=== PATIENT | female | born 1980 | race Caucasian/White ===

== ENCOUNTER 2024-03-16 01:32 | Inpatient (IN) | payer OTHER, SELFPAY ==
[2024-03-16 03:56] LABS: #Basophils Less than 0.03 10x3/uL (0.0-0.2); #Eosinophils Less than 0.03 10x3/uL (0.0-0.7); %Basophils 0.1 % (0.0-1.0); %Lymphocytes 2.4 % (21.0-51.0); %Monocytes 2.5 % (0.0-10.0); %Neutrophils 94.4 % (42.0-75.0); Hematocrit 36.5 % (36.0-47.0); Hemoglobin 11.8 g/dL (12.0-16.0); Mean Corpuscular HGB CONC 32.3 g/dL (32.0-36.0); Mean Corpuscular Hemoglobin 31.6 pg (27.0-31.0); Mean Corpuscular Volume 97.6 fL (78.0-98.0); Platelet Count 212 10x3/uL (130-400); RBC Distribution Width 11.9 % (11.5-14.5); Red Blood Cell (RBC) Count 3.74 mill/uL (4.20-5.40)
[2024-03-16 04:31] LABS: Acetaminophen Less than 10 mcg/mL (Less than 10); Alcohol Less than 10.0 mg/dL (Less than 10); Magnesium 1.6 mg/dL (1.6-2.6); Salicylate Less than 8.0 mg/dL (Less than 8.0)
[2024-03-16 04:33] LABS: ALT (SGPT) 42 U/L (8-55); AST (SGOT) 50 U/L (5-34); Albumin 3.5 g/dL (3.5-5.0); Alkaline Phosphatase 66 U/L (40-110); Anion Gap 13 mmol/L (10-20); BUN (Urea Nitrogen) 15 mg/dL (7.0-18.7); Bilirubin, Total 0.9 mg/dL (0.2-1.2); Calc. Creatinine Clearance 0 mL/min (70-130); Calcium 8.7 mg/dL (7.8-10.44); Carbon Dioxide 18 mmol/L (22-29); Chloride 109 mmol/L (98-107); Estimated GFR 111; Globulin 2.9 g/dL (2.4-3.5); Glucose 114 mg/dL (70-105); Potassium 3.6 mmol/L (3.5-5.1); Protein, Total 6.4 g/dL (6.0-8.3); Sodium 136 mmol/L (136-145)
[2024-03-16 04:34] LABS: Troponin I 0.034 ng/mL (< 0.028)
[2024-03-16 04:59] LABS: BHCG - Serum Negative (NEGATIVE); Pregs Control Background? CLEAR/WHITE (CLR/WHITE); Pregs Control Bar Appear? YES (CONTROL BAR)
[2024-03-16 05:09] LABS: Bilirubin Negative (Negative); Blood, Urine Negative (Negative); CAUTI Indications for Culture Pelvic or flank pain; Clarity Turbid (Clear); Glucose, Urine (Dipstick) Normal (Negative); Ketone, Urine Trace mg/dL (Negative); Leukocyte 500 Leu/uL (Negative); Nitrite Negative (Negative); Protein, Urine (Dipstick) 50 mg/dL (Neg-Trace); RBC/HPF 0-3 HPF (0-3); Specific Gravity, Urine 1.021 (1.002-1.036); Squamous Epithelial 0-3 HPF (0-3); WBC/HPF 21-50 HPF (0-3); pH, Urine 8.5 (5.0-9.0)
[2024-03-16 05:15] LABS: Bacteria/HPF Rare-Few HPF (None Seen); Urine Culture Reflex Yes Yes
[2024-03-16 05:25] LABS: Pregnancy Test - Urine (BHCG) Negative (Negative); Pregu Control Background? CLEAR/WHITE (CLR/WHITE); Pregu Control Bar Appear? YES (CONTROL BAR); Specific Gravity 1.021 (1.002-1.036)
[2024-03-16 05:34] LABS: Amphetamine Detected (NotDetected); Barbiturates Screen Not Detected (NotDetected); Benzodiazepine Screen Not Detected (NotDetected); Cocaine Metabolite Screen Not Detected (NotDetected); Methadone Not Detected (NotDetected); Methamphetamine Detected (NotDetected); Opiate Screen Detected (NotDetected); Oxycodone Screen Not Detected (NotDetected); Phencyclidine (PCP) Not Detected (NotDetected); THC/Cannabinoid Screen Not Detected (NotDetected); Tricyclic Screen Not Detected (NotDetected)
[2024-03-16] MEDS ORDERED: Aspirin Chewable 81 MG TAB ONE (08:35)
[2024-03-16] MEDS ORDERED: Acetaminophen 325 MG TAB PO PRN (08:51)
[2024-03-16] MEDS ORDERED: Iopamidol 370 76% 100 ML VIAL ONE (09:08)
[2024-03-16] MEDS ORDERED: Enoxaparin 40 MG (0.4 mL) SYRINGE ONE (10:30)
[2024-03-16] MEDS ORDERED: Pantoprazole DR 40 MG TAB ONE (10:30)
[2024-03-16] MEDS: Enoxaparin 40 MG (0.4 mL) SYRINGE SC SCH (10:35)
[2024-03-16] MEDS: Pantoprazole DR 40 MG TAB PO SCH (10:35)
[2024-03-16] MEDS: Sodium Chloride 0.9% 1,000 ML IV SCH (10:36)
[2024-03-16 11:13] LABS: Troponin I 1.033 ng/mL (< 0.028)
[2024-03-16 11:29] VITALS: BMI 20.9
[2024-03-16] MEDS ORDERED: Nitroglycerin 0.4 MG TAB (25 Tab Bottle) SL PRN (12:59)
[2024-03-16 13:02] LABS: #Basophils 0.04 10x3/uL (0.0-0.2); #Eosinophils Less than 0.03 10x3/uL (0.0-0.7); %Basophils 0.2 % (0.0-1.0); %Eosinophils 0.1 % (0.0-10.0); %Lymphocytes 6.4 % (21.0-51.0); %Monocytes 3.2 % (0.0-10.0); %Neutrophils 89.6 % (42.0-75.0); Hematocrit 34.1 % (36.0-47.0); Hemoglobin 11.3 g/dL (12.0-16.0); Mean Corpuscular HGB CONC 33.1 g/dL (32.0-36.0); Mean Corpuscular Hemoglobin 31.8 pg (27.0-31.0); Mean Corpuscular Volume 96.1 fL (78.0-98.0); Mean Platelet Volume 9.2 fL (7.4-10.4); Platelet Count 218 10x3/uL (130-400); Red Blood Cell (RBC) Count 3.55 mill/uL (4.20-5.40)
[2024-03-16 13:42] LABS: Anion Gap 10 mmol/L (10-20); BUN (Urea Nitrogen) 11 mg/dL (7.0-18.7); Calc. Creatinine Clearance 100 mL/min (70-130); Calcium 8.8 mg/dL (7.8-10.44); Carbon Dioxide 22 mmol/L (22-29); Chloride 107 mmol/L (98-107); Estimated GFR 111; Glucose 96 mg/dL (70-105); Potassium 3.7 mmol/L (3.5-5.1); Sodium 135 mmol/L (136-145)
[2024-03-16 14:02] LABS: Critical Call Chem Troponin I RESULT DECREASING; Troponin I 0.983 ng/mL (< 0.028)
[2024-03-16] MEDS: Enoxaparin 30 MG (0.3 mL) SYRINGE SC SCH (16:42)
[2024-03-16] MEDS: traMADol HCl 50 MG TAB PO SCH (21:27)
[2024-03-16] MEDS: HYDROcodone/Acetaminophen 5/325 mg Tablet PO SCH (23:52)
[2024-03-16] MEDS: Enoxaparin 60 MG (0.6 mL) SYRINGE SC SCH (23:52)
[2024-03-17] MEDS: Piperacillin/Tazobactam 3.375 GM in Sodium Chloride 0.9% 100 ML IVPB SCH ×3 (00:20→05:01)
[2024-03-17] MEDS ORDERED: Lactated Ringer's 1,000 ML IV SCH (00:30)
[2024-03-17] MEDS ORDERED: MD-Gastroview 120 ML BOT ONE (09:09)
[2024-03-17 11:19] LABS: #Basophils Less than 0.03 10x3/uL (0.0-0.2); %Basophils 0.2 % (0.0-1.0); %Eosinophils 0.8 % (0.0-10.0); %Lymphocytes 7.2 % (21.0-51.0); %Neutrophils 85.4 % (42.0-75.0); Hematocrit 38.3 % (36.0-47.0); Hemoglobin 12.6 g/dL (12.0-16.0); Mean Corpuscular HGB CONC 32.9 g/dL (32.0-36.0); Mean Corpuscular Hemoglobin 31.6 pg (27.0-31.0); Mean Platelet Volume 9.2 fL (7.4-10.4); Platelet Count 217 10x3/uL (130-400); RBC Distribution Width 12.1 % (11.5-14.5); Red Blood Cell (RBC) Count 3.99 mill/uL (4.20-5.40)
[2024-03-17 11:31] LABS: Anion Gap 13 mmol/L (10-20); BUN (Urea Nitrogen) 10 mg/dL (7.0-18.7); Calc. Creatinine Clearance 114 mL/min (70-130); Calcium 8.9 mg/dL (7.8-10.44); Carbon Dioxide 23 mmol/L (22-29); Chloride 105 mmol/L (98-107); Estimated GFR 112; Glucose 103 mg/dL (70-105); Potassium 3.8 mmol/L (3.5-5.1); Sodium 137 mmol/L (136-145)
[2024-03-17] MEDS: Morphine 2 MG/ML VIAL SLOW IVP PRN (20:36)
[2024-03-18 10:51] LABS: #Basophils Less than 0.03 10x3/uL (0.0-0.2); %Basophils 0.1 % (0.0-1.0); %Eosinophils 1.1 % (0.0-10.0); %Lymphocytes 7.5 % (21.0-51.0); %Neutrophils 83.8 % (42.0-75.0); Hematocrit 40.2 % (36.0-47.0); Hemoglobin 13.8 g/dL (12.0-16.0); Mean Corpuscular HGB CONC 34.3 g/dL (32.0-36.0); Mean Corpuscular Hemoglobin 31.3 pg (27.0-31.0); Mean Corpuscular Volume 91.2 fL (78.0-98.0); Mean Platelet Volume 9.2 fL (7.4-10.4); Platelet Count 319 10x3/uL (130-400); Red Blood Cell (RBC) Count 4.41 mill/uL (4.20-5.40)
[2024-03-18 11:10] LABS: Troponin I 0.147 ng/mL (< 0.028)
[2024-03-18 11:24] LABS: Anion Gap 14 mmol/L (10-20); BUN (Urea Nitrogen) 7 mg/dL (7.0-18.7); Calc. Creatinine Clearance 114 mL/min (70-130); Carbon Dioxide 25 mmol/L (22-29); Chloride 103 mmol/L (98-107); Estimated GFR 112; Glucose 105 mg/dL (70-105); Potassium 3.4 mmol/L (3.5-5.1); Sodium 139 mmol/L (136-145)
[2024-03-18] MEDS: Amoxicillin/Potassium Clav 875 MG TAB PO SCH ×2 (11:33→21:20)
[2024-03-19] MEDS: LevoFLOXacin 750 MG TAB PO SCH (12:33)
[2024-03-19] MEDS: Milk Of Magnesia 30 ML UDCUP PO SCH (12:33)
[2024-03-19 13:31] LABS: #Basophils 0.03 10x3/uL (0.0-0.2); %Basophils 0.4 % (0.0-1.0); %Eosinophils 2.6 % (0.0-10.0); %Monocytes 9.2 % (0.0-10.0); Hematocrit 39.2 % (36.0-47.0); Hemoglobin 13.4 g/dL (12.0-16.0); Mean Corpuscular HGB CONC 34.2 g/dL (32.0-36.0); Mean Corpuscular Hemoglobin 31.8 pg (27.0-31.0); Mean Corpuscular Volume 92.9 fL (78.0-98.0); Mean Platelet Volume 8.9 fL (7.4-10.4); Platelet Count 349 10x3/uL (130-400); RBC Distribution Width 12.1 % (11.5-14.5); Red Blood Cell (RBC) Count 4.22 mill/uL (4.20-5.40)
[2024-03-19 13:47] LABS: Anion Gap 14 mmol/L (10-20); BUN (Urea Nitrogen) 11 mg/dL (7.0-18.7); Calc. Creatinine Clearance 124 mL/min (70-130); Calcium 8.9 mg/dL (7.8-10.44); Carbon Dioxide 28 mmol/L (22-29); Chloride 99 mmol/L (98-107); Estimated GFR 114; Glucose 99 mg/dL (70-105); Potassium 3.5 mmol/L (3.5-5.1); Sodium 137 mmol/L (136-145)
[2024-03-19] MEDS: Melatonin 3 MG TAB PO PRN (23:48)
[2024-03-19] MEDS: Bisacodyl 10 MG SUPP PR PRN (23:48)
[2024-03-20] MEDS: LevoFLOXacin 750 MG TAB PO SCH (05:14)
[2024-03-20] MEDS: Milk Of Magnesia 30 ML UDCUP PO PRN (10:04)
[2024-03-20 15:18] VITALS: BP 103/68; TEMP 98
== END 2024-03-20 13:00 | disposition home or self-care (01) | DRG 393 ==
LOC: ERS 01:32 → ERHOLD 08:44 → 2SW 14:46 → OBSVTOIN 03-17 08:46 → MSONC 03-19 17:30
PROVIDERS: ADMIT Internal Medicine; ATTEND Internal Medicine
DX: K46.0 Unspecified abdominal hernia with obstruction, without gangrene (principal); I21.A1 Myocardial infarction type 2; N39.0 Urinary tract infection, site not specified; F15.10 Other stimulant abuse, uncomplicated; F12.10 Cannabis abuse, uncomplicated; F17.210 Nicotine dependence, cigarettes, uncomplicated; D64.9 Anemia, unspecified; F32.A Depression, unspecified
CPT/HCPCS: 36415; 71045; 71275; 74018; 74176; 80048; 80053; 80306; 80307; 81001; 81025; 83605; 83735; 84145; 84484; 84703; 85025; 85379; 87040; 87077; 87086; 87149; 93005; 93306; 96372; 96374; G0378; J1650; J2272; J2543; J7030; Q9963; Q9967